=== PATIENT | male | born 1940 | race Caucasian/White ===

== ENCOUNTER 2017-02-12 11:34 | Emergency (ER) | payer MEDICARE, OTHER ==
[~2017-02-12] VITALS: Ht 177.8 cm; Wt 113.0 kg
[~2017-02-12 11:34] MED LIST: APIX5 PO; ASPI325T PO; ASPI81 PO; ATOR40TA49 PO; DIOV160T60 PO; FURO1TAB93 PO; GABA100C4 PO; MAGN1TAB14 PO; MULT-65 PO; OMEP20TA PO; ONDA1TAB16 PO; STOO100T PO; SYNT25TA PO; TAMS0.4C4 PO; VITA20002 PO
[2017-02-12 11:43] VITALS: BP 137/85; PULSE 81; RESP 18; TEMP 97.6; O2SAT 97
[2017-02-12] MEDS ORDERED: MORPHINE SULFATE 4 MG/ML INJ IV PUSH ONE (11:45)
[2017-02-12] MEDS ORDERED: SODIUM CHLORIDE 0.9% FLUSH 10 ML FLUSH IV FLUSH PRN (11:45)
[2017-02-12] MEDS ORDERED: ONDANSETRON HCL 4 MG/2 ML VIAL IVP ONE (11:45)
[2017-02-12 11:50] VITALS: O2SAT 97
[2017-02-12 12:09] LABS: AUTOMATED NEUTROPHIL # 3.5 TH/MM3 (1.8-7.7); BASOPHIL % 0.7 % (0.0-2.0); EOSINOPHIL # 0.2 TH/MM3 (0-0.4); EOSINOPHIL % 3.2 % (0.0-4.0); HEMATOCRIT 37.3 % (39.0-51.0); HEMO FLAGS DIFF FINAL; LYMPH % 26.9 % (9.0-44.0); LYMPHOCYTE # 1.7 TH/MM3 (1.0-4.8); MEAN CELL VOLUME 86.4 FL (80.0-100.0); MEAN CORPUSCULAR HEMOGLOBIN 28.9 PG (27.0-34.0); MEAN CORPUSCULAR HGB CONC 33.5 % (32.0-36.0); MONO % 12.4 % (0.0-8.0); NEUT % 56.8 % (16.0-70.0); PLATELET COUNT 151 TH/MM3 (150-450); RED BLOOD COUNT 4.32 MIL/MM3 (4.50-5.90); RED CELL DISTRIBUTION WIDTH 14.3 % (11.6-17.2); WHITE BLOOD COUNT 6.2 TH/MM3 (4.0-11.0)
[2017-02-12 12:25] LABS: ANION GAP 9 MEQ/L (5-15); AST (GOT) 21 U/L (15-37); BICARBONATE 27.1 MEQ/L (21.0-32.0); BLOOD UREA NITROGEN 9 MG/DL (7-18); CHLORIDE 100 MEQ/L (98-107); GLOMERULAR FILTRATION RATE 69 ML/MIN (>89); POTASSIUM 3.3 MEQ/L (3.5-5.1); SODIUM (NA) 136 MEQ/L (136-145)
[2017-02-12 12:29] LABS: ALKALINE PHOSPHATASE 95 U/L (45-117); ALT (GPT) 27 U/L (12-78); TOTAL BILIRUBIN ADULT 0.8 MG/DL (0.2-1.0)
--- NOTE | 2017-02-12 12:46 | PD ---
HPI . Nausea and abdominal pain Chief Complaint: Abdominal Pain Time Seen by Provider: 11:45 Travel History International Travel<30 days: No Contact w/Intl Traveler<30days: No Traveled to known affect area: No History of Present Illness HPI This patient presents with the acute onset of lower abdominal pain and nausea. Onset was today. He is not vomiting. He has had no known fever. No diarrhea. No urinary symptoms. He rates the pain 67/10. No exacerbating or relieving factors. The patient is also complaining of pain "across his shoulders." PFSH Past Medical History Arthritis: Yes Asthma: No Atrial Fibrillation: Yes Blood Disorders: No Anxiety: No Depression: Yes Heart Rhythm Problems: No Cancer: No Cardiovascular Problems: Yes (A-FIB / CHF / [place]) High Cholesterol: Yes Chemotherapy: No Chest Pain: Yes Congestive Heart Failure: Yes Cirrhosis: Yes (PT DOES NOT KNOW WHETHER HE ACTUALLY HAS THIS) COPD: No Cerebrovascular Accident: Yes (25 years ago) Coronary Artery Disease: Yes Diabetes: No Diminished Hearing: No Diverticulitis: Yes Endocrine: Yes Gastrointestinal Disorders: Yes (Diverticulitis) GERD: Yes Gout: Yes Genitourinary: No Headaches: No Hepatitis: No Hiatal Hernia: No Herniated Disk: Yes Hypertension: Yes Immune Disorder: No Implanted Vascular Access Dvce: No Kidney Stones: No Musculoskeletal: Yes Neurologic: Yes (CVA) Psychiatric: Yes Reproductive: Yes (prostate issues -retention) Respiratory: Yes Immunizations Current: Yes Migraines: No Myocardial Infarction: Yes Pancreatitis: Yes Radiation Therapy: No Renal Failure: No Seizures: No Sickle Cell Disease: No Sleep Apnea: No Thyroid Disease: Yes Ulcer: No Tetanus Vaccination: < 5 Years Influenza Vaccination: Yes PNEUMOCCOCAL Vaccine (Year): 2010 Past Surgical History Abdominal Surgery: Yes (RUPTURED SPLEEN) Cardiac Surgery: No Ear Surgery: No Endocrine Surgery: No Eye Surgery: No Genitourinary Surgery: No Gynecologic Surgery: No Neurologic Surgery: No Oral Surgery: No Thoracic Surgery: No Other Surgery: Yes (ruptured spleen ) Social History Alcohol Use: No Tobacco Use: No Substance Use: No Allergies-Medications (Allergen,Severity, Reaction): Coded Allergies: Allopurinol (Verified Allergy, Severe, 04/30/16) Naprosyn (Verified Allergy, Severe, Itching, 04/30/16) Reported Meds & Prescriptions Reported Meds & Active Scripts Active Zofran Odt (Ondansetron Odt) 4 Mg Tab 4 Mg SL Q6HR PRN Aspirin Low Strength (Aspirin) 81 Mg Chw 81 Mg PO DAILY 30 Days Eliquis (Apixaban) 5 Mg Tab 5 Mg PO BID 30 Days Lipitor 40 Mg Tab (Atorvastatin Calcium) 40 Mg Tab 40 Mg PO DAILY Aspirin 325 Mg Tab (Aspirin) 325 Mg Tab 325 Mg PO DAILY Zofran Tab (Ondansetron HCl) 4 Mg Tab 4 Mg PO Q6 PRN Furosemide 40 Mg Tab 20 Mg PO DAILY Reported Stool Softener (Miscellaneous Medication) 100 Mg Tab 100 Mg PO DAILY PRN Tamsulosin 0.4 mg (Tamsulosin HCl) 0.4 Mg Cap 0.4 Mg PO DAILY Vitamin D-3 (Cholecalciferol) 2 000 Tab 2,000 Unit PO DAILY Magnesium (Magnesium Oxide) 400 Mg Tab 800 Mg PO DAILY Gabapentin 100 Mg Cap 300 Mg PO HS Omeprazole 20 mg (Omeprazole) 20 Mg Tab 20 Mg PO DAILY Multi-Vitamin Daily (Multivitamins) Daily Tab 1 Tab PO DAILY Diovan 160 mg (Valsartan) 160 Mg Tab 160 Mg PO DAILY Synthroid (Levothyroxine Sodium) 25 Mcg Tab 25 Mcg PO DAILY Review of Systems Except as stated in HPI: all other systems reviewed are Neg General / Constitutional: No: Fever, Chills Cardiovascular: No: Chest Pain or Discomfort Respiratory: No: Shortness of Breath Gastrointestinal: Positive: Nausea, Abdominal Pain, No: Vomiting, Diarrhea, Constipation Genitourinary: No: Urgency, Frequency, Dysuria Musculoskeletal: Positive: Pain (across his shoulders) Physical Exam Narrative GENERAL: Patient is awake and alert and does not appear to be in any acute distress. SKIN: Warm and dry. HEAD: Atraumatic. Normocephalic. EYES: Pupils equal and round. Extraocular movements are intact. ENT: No nasal bleeding or discharge. Mucous membranes pink and moist. NECK: Trachea midline. Neck is supple. CARDIOVASCULAR: Irregularly irregular rate and rhythm. RESPIRATORY: No accessory muscle use. Lungs are clear. GASTROINTESTINAL: Abdomen soft, non-tender, nondistended. I am unable to elicit any tenderness. MUSCULOSKELETAL: No obvious deformities. No edema. NEUROLOGICAL: Awake and alert. No obvious cranial nerve deficits. Motor grossly within normal limits. Normal speech. PSYCHIATRIC: Appropriate mood and affect; insight and judgment normal. Data Data Last Documented VS Vital Signs Date Time Temp Pulse Resp B/P Pulse Ox O2 Delivery O2 Flow Rate FiO2 02/12/17 11:50 97 Room Air 02/12/17 11:43 97.6 81 18 137/85 Orders Complete Blood Count With Diff (02/12/17 11:45) Comprehensive Metabolic Panel (02/12/17 11:45) Lipase (02/12/17 11:45) Urinalysis - C+S If Indicated (02/12/17 11:45) Ct Abd/Pel W Iv Contrast(Rout) (02/12/17 11:45) Iv Access Insert/Monitor (02/12/17 11:45) Ecg Monitoring (02/12/17 11:45) Oximetry (02/12/17 11:45) Morphine Inj (Morphine Inj) (02/12/17 11:45) Ondansetron Inj (Zofran Inj) (02/12/17 11:45) Sodium Chloride 0.9% Flush (Ns Flush) (02/12/17 11:45) Electrocardiogram (02/12/17 11:45) Iohexol 350 Inj (Omnipaque 350 Inj) (02/12/17 13:08) Labs Laboratory Tests Test 02/12/17 02/12/17 11:50 13:20 White Blood Count 6.2 TH/MM3 Red Blood Count 4.32 MIL/MM3 Hemoglobin 12.5 GM/DL Hematocrit 37.3 % Mean Corpuscular Volume 86.4 FL Mean Corpuscular Hemoglobin 28.9 PG Mean Corpuscular Hemoglobin 33.5 % Concent Red Cell Distribution Width 14.3 % Platelet Count 151 TH/MM3 Mean Platelet Volume 8.7 FL Neutrophils (%) (Auto) 56.8 % Lymphocytes (%) (Auto) 26.9 % Monocytes (%) (Auto) 12.4 % Eosinophils (%) (Auto) 3.2 % Basophils (%) (Auto) 0.7 % Neutrophils # (Auto) 3.5 TH/MM3 Lymphocytes # (Auto) 1.7 TH/MM3 Monocytes # (Auto) 0.8 TH/MM3 Eosinophils # (Auto) 0.2 TH/MM3 Basophils # (Auto) 0.0 TH/MM3 CBC Comment DIFF FINAL Differential Comment Sodium Level 136 MEQ/L Potassium Level 3.3 MEQ/L Chloride Level 100 MEQ/L Carbon Dioxide Level 27.1 MEQ/L Anion Gap 9 MEQ/L Blood Urea Nitrogen 9 MG/DL Creatinine 1.05 MG/DL Estimat Glomerular Filtration 69 ML/MIN Rate Random Glucose 120 MG/DL Calcium Level 8.7 MG/DL Total Bilirubin 0.8 MG/DL Aspartate Amino Transf 21 U/L (AST/SGOT) Alanine Aminotransferase 27 U/L (ALT/SGPT) Alkaline Phosphatase 95 U/L Total Protein 8.1 GM/DL Albumin 3.7 GM/DL Lipase 99 U/L Urine Color YELLOW Urine Turbidity CLEAR Urine pH 5.5 Urine Specific [place] 1.015 Urine Protein NEG mg/dL Urine Glucose (UA) NEG mg/dL Urine Ketones NEG mg/dL Urine Occult Blood NEG Urine Nitrite NEG Urine Bilirubin NEG Urine Urobilinogen LESS THAN 2.0 MG/DL Urine Leukocyte Esterase NEG Urine WBC LESS THAN 1 /hpf Urine Mucus FEW /lpf Microscopic Urinalysis Comment CULT NOT INDICATED MDM Medical Decision Making Medical Screen Exam Complete: Yes Emergency Medical Condition: Yes Medical Record Reviewed: Yes (past medical history is significant for diverticulitis, hypertension, atrial fibrillation, CHF, hypothyroidism, previous stroke, previous alcohol abuse and previous suicidal ideation.) Interpretation(s) Atrial fibrillation with frequent PVCs. Ventricular rate is 72. There is no acute ST segment elevation or depression. Differential Diagnosis Differential diagnosis of abdominal pain includes but is not limited to gastritis, pancreatitis, hepatitis, gastroenteritis, gallbladder disease, constipation, urinary retention, UTI, peptic ulcer disease, diverticulitis or appendicitis Narrative Course This patient presents with nausea and lower abdominal pain. His exam is benign. CBC & BMP Diagram 02/12/17 11:50 LFTs and lipase are normal. CT abd/pelvis: 1. No acute abnormality to explain the patient's pain. 2. Cholelithiasis. 3. Prior granulomatous disease. UA is negative. The history, exam, diagnostic testing, and current condition do not suggest any significant pathology to warrant further testing, continued ED treatment, admission, or surgical evaluation at this point. The patient's condition is stable and appropriate for discharge. Diagnosis Primary Impression: Abdominal pain Qualified Code: R10.30 - Lower abdominal pain Additional Impression: Nausea Patient Instructions: Abdominal Pain (ED), General Instructions Scripts Ondansetron Odt (Zofran Odt)4 Mg Tab4 Mg SL Q6HR PRN (Nausea/Vomiting) #30 TAB Ref 0 Prov:Damaris Leyva MD 02/12/17 Disposition: 01 DISCHARGE HOME Condition: Stable Damaris Leyva MD Feb 12, 2017 12:46
[2017-02-12] MEDS ORDERED: IOHEXOL 350 MG/ML 10 ML VIAL (for RAD DIAG) IV ONE (13:08)
--- NOTE | 2017-02-12 13:36 | RADRPT ---
EXAM DATE/TIME: 02/12/2017 12:57 [facility] COMPARISON: CT ABDOMEN & PELVIS W CONTRAST, February 01, 2016, 9:46. INDICATIONS : Nausea, with Lower abdominal pain. IV CONTRAST: 92 cc Omnipaque 350 (iohexol) IV ORAL CONTRAST: No oral contrast ingested. RADIATION DOSE: 14.34 CTDIvol (mGy) MEDICAL HISTORY : Cardiovascular disease. Cerebrovascular disease. Hypertension.CHF,CVA, ruptured spleen, prostate ret ention. SURGICAL HISTORY : ENCOUNTER: Initial ACUITY: 1 day PAIN SCALE: 5/10 LOCATION: lower quadrant abdominal. TECHNIQUE: Volumetric scanning of the abdomen and pelvis was performed. Using automated exposure control and ad justment of the mA and/or kV according to patient size, radiation dose was kept as low as reasonably achievable to obtain optimal diagnostic quality images. DICOM format image data is available electro nically for review and comparison. FINDINGS: LOWER LUNGS: The visualized lower lungs are clear. LIVER: Homogeneous density without lesion. There is no dilation of the biliary tree. Several small calcifie d gallstones are seen layering within an otherwise normal appearing gallbladder. SPLEEN: Normal size without lesion. Multiple small granulomatous calcifications are seen involving the spleen PANCREAS: Within normal limits. KIDNEYS: Normal in size and shape. There is no mass, stone or hydronephrosis. ADRENAL GLANDS: Within normal limits. VASCULAR: There is no aortic aneurysm. BOWEL/MESENTERY: The stomach, small bowel, and colon demonstrate no acute abnormality. There is no free intraperitone al air or fluid. Multiple colonic diverticuli without acute inflammation. Appendix is normal by CT cr iteria. ABDOMINAL WALL: Within normal limits. RETROPERITONEUM: There is no lymphadenopathy. BLADDER: No wall thickening or mass. REPRODUCTIVE: Within normal limits. INGUINAL: There is no lymphadenopathy or hernia. MUSCULOSKELETAL: Within normal limits for patient age. CONCLUSION: 1. No acute abnormality to explain the patient's pain. 2. Cholelithiasis. 3. Prior granulomatous disease. Rigoberto Caraballo Jr., MD on February 12, 2017 at 13:17 Board Certified Radiologist. This report was verified electronically.
[2017-02-12] MEDS ORDERED: ZOFR4TAB3 SL (13:40)
[2017-02-12 13:54] LABS: BLOOD, URINE NEG (NEG); COMMENT (UR) CULT NOT INDICATED; CULTURE IF INDICATED CULT NOT INDICATED; GLUCOSE,URINE NEG (NEG); KETONE, URINE NEG (NEG); MUCUS URINE FEW /lpf (OCC); NITRITE,URINE NEG (NEG); PH, URINE 5.5 (5.0-8.5); URINE COLOR YELLOW (YELLW/STRAW)
--- NOTE | 2017-02-12 14:45 | EKG ---
Date Performed: 02/12/2017 Time Performed: 11:46:12 PTAGE: 76 years EKG: ATRIAL FIBRILLATION WITH ABERRANT CONDUCTION OR VENTRICULAR PREMATURE COMPLEXES LOW QRS VOL TAGE IN PRECORDIAL LEADS ABNORMAL RHYTHM ECG PREVIOUS TRACING : 05/01/2016 05.26 Compared to the previous tracing PVCs are new DOCTOR: Lawrence Abreu Interpretating Date/Time 02/12/2017 14:44:34
== END 2017-02-12 14:55 | disposition home or self-care (01) ==
LOC: NEPE 11:34
DX: R10.30 Lower abdominal pain, unspecified (principal); R11.0 Nausea; I49.3 Ventricular premature depolarization; I48.91 Unspecified atrial fibrillation; I11.0 Hypertensive heart disease with heart failure; I50.9 Heart failure, unspecified; E78.00 Pure hypercholesterolemia, unspecified; K21.9 Gastro-esophageal reflux disease without esophagitis; M10.9 Gout, unspecified; I25.2 Old myocardial infarction; K80.20 Calculus of gallbladder without cholecystitis without obstruction
CPT/HCPCS: 74177; 80053; 81001; 83690; 85025; 93005; 96374; 96375; 99285; J2270; J2405; Q9967

== ENCOUNTER 2018-01-04 12:44 | Observation (INO) | payer OTHER, MEDICARE ==
[~2018-01-04] VITALS: Ht 172.7 cm; Wt 100.0 kg
[~2018-01-04 12:44] MED LIST changes: +ZOFR4TAB3 SL
[2018-01-04 12:55] VITALS: BP 146/76; PULSE 80; RESP 20; TEMP 98.3; O2SAT 96
[2018-01-04 13:07] VITALS: BP 146/76; PULSE 80; RESP 20; TEMP 98.3; O2SAT 96
[2018-01-04] MEDS ORDERED: SODIUM CHLORIDE 0.9% FLUSH 10 ML FLUSH IVF PRN (13:30)
[2018-01-04] MEDS ORDERED: LEVO25TA4 PO (13:38)
[2018-01-04] MEDS ORDERED: LIPI80TA PO (13:38)
[2018-01-04] MEDS ORDERED: ISOS30TA3 PO (13:38)
[2018-01-04] MEDS ORDERED: NITR1SUB3 SL (13:38)
[2018-01-04] MEDS ORDERED: ASPI-183 PO (13:38)
[2018-01-04] MEDS ORDERED: LIDO1CRE18 TOPICAL (13:38)
[2018-01-04] MEDS ORDERED: CARV6.25 PO (13:38)
[2018-01-04] MEDS ORDERED: NORV2.5T PO (13:38)
[2018-01-04] MEDS ORDERED: FURO1TAB60 PO (13:38)
[2018-01-04] MEDS ORDERED: NEUR400C PO (13:38)
[2018-01-04] MEDS ORDERED: OMEP20TA93 PO (13:38)
[2018-01-04] MEDS ORDERED: ALFU10TA3 PO (13:38)
--- NOTE | 2018-01-04 13:43 | PD ---
HPI Chief Complaint: Psychiatric Symptoms Time Seen by Provider: 13:28 Travel History International Travel<30 days: No Contact w/Intl Traveler<30days: No Traveled to known affect area: No History of Present Illness HPI Patient is a 77-year-old male presenting to the emergency department under Cervantes act for [facility] evaluation from [facility]. Per the Cervantes act patient is at risk for potential self-harm, he has been laughing inappropriately , anxious, paranoid. Patient stated that he went to the [facility] this morning to get medication and he does not know why he was brought here. He denies any physical complaints, he denies any suicidal homicidal ideations. Patient states he is 31 years old but then stated that he lies about his age so much he forgets how old he really is. Patient denies any pain. Patient did state that he was going to , he does not elaborate on the thought. PFSH Past Medical History Hx Anticoagulant Therapy: No Arthritis: Yes Atrial Fibrillation: Yes Anxiety: Yes Depression: Yes High Cholesterol: Yes Chest Pain: Yes Congestive Heart Failure: Yes Cirrhosis: Yes Cerebrovascular Accident: Yes Coronary Artery Disease: Yes Diverticulitis: Yes GERD: Yes Gout: Yes Herniated Disk: Yes Hypertension: Yes Reproductive: Yes (BPH) Immunizations Current: Yes Myocardial Infarction: Yes Pancreatitis: Yes Thyroid Disease: Yes Tetanus Vaccination: Unknown Influenza Vaccination: No PNEUMOCCOCAL Vaccine (Year): 2010 ?: Not Past Surgical History Abdominal Surgery: Yes (RUPTURED SPLEEN) Social History Alcohol Use: Yes (Occasional) Tobacco Use: No Substance Use: No Allergies-Medications (Allergen,Severity, Reaction): Coded Allergies: allopurinol (Unverified Allergy, Severe, 03/09/17) naproxen (Unverified Allergy, Severe, Itching, 03/09/17) Reported Meds & Prescriptions Reported Meds & Active Scripts Active Reported Aspirin 325 Mg Tab 325 Mg PO DAILY Omeprazole 20 Mg Tab 20 Mg PO DAILY Nitroglycerin SL (Nitroglycerin) 0.4 Mg Subl 0.4 Mg SL DIRECTED PRN ONE TABLET UNDER THE TONGUE NEEDED FOR CHEST PAIN, MAY REPEAT EVERY FIVE MINUTES FOR A TOTAL OF 3 DOSES OR CALL 911 IF NO RELIEF Lidocaine Topical (Lidocaine) 4 % Cream 1 Applic TOPICAL QID Apply to affected area on skin Levothyroxine (Levothyroxine Sodium) 25 Mcg Tab 25 Mcg PO DAILY Isosorbide Mononitrate ER (Isosorbide Mononitrate) 30 Mg Lenore 30 Mg PO DAILY Neurontin (Gabapentin) 400 Mg Cap 400 Mg PO TID Lasix (Furosemide) 40 Mg Tab 40 Mg PO BID Coreg (Carvedilol) 6.25 Mg Tab 3.125 Mg PO BID Lipitor (Atorvastatin Calcium) 80 Mg Tab 80 Mg PO HS Norvasc (Amlodipine Besylate) 2.5 Mg Tab 2.5 Mg PO DAILY Alfuzosin HCl ER (Alfuzosin HCl) 10 Mg Tab 10 Mg PO DAILY Review of Systems Except as stated in HPI: all other systems reviewed are Neg Psychiatric: No: Anxiety, Suicidal Ideations, Mood Disorder, Homicidal Ideation Physical Exam Narrative GENERAL: Overweight, well-developed, alert elderly gentleman. Presenting in no acute distress. SKIN: Warm and dry. HEAD: Atraumatic. Normocephalic. EYES: Pupils equal and round. No scleral icterus. No injection or drainage. ENT: No nasal bleeding or discharge. Mucous membranes pink and moist. NECK: Trachea midline. No JVD. CARDIOVASCULAR: Regular rate and rhythm. RESPIRATORY: No accessory muscle use. Clear to auscultation. Breath sounds equal bilaterally. GASTROINTESTINAL: Abdomen soft, non-tender, nondistended. Hepatic and splenic margins not palpable. MUSCULOSKELETAL: Extremities without clubbing, cyanosis, or edema. No obvious deformities. NEUROLOGICAL: Awake and alert oriented to self, place, time.. No obvious cranial nerve deficits. Motor grossly within normal limits. Five out of 5 muscle strength in the arms and legs. Normal speech. PSYCHIATRIC: Appropriate mood and affect; insight and judgment normal. Data Data Last Documented VS Vital Signs Date Time Temp Pulse Resp B/P (MAP) Pulse Ox O2 Delivery O2 Flow Rate FiO2 01/04/18 13:44 96 Room Air 01/04/18 13:07 98.3 80 20 Orders Orders Complete Blood Count With Diff (01/04/18 13:29) Comprehensive Metabolic Panel (01/04/18 13:29) Thyroid Stimulating Hormone (01/04/18 13:29) Urinalysis - C+S If Indicated (01/04/18 13:29) Oximetry (01/04/18 13:29) Iv Access Insert/Monitor (01/04/18 13:29) Ecg Monitoring (01/04/18 13:29) Psych Screen (01/04/18 13:29) Sodium Chloride 0.9% Flush (Ns Flush) (01/04/18 13:30) Drug Screen, Random Urine (01/04/18 13:29) Alcohol (Ethanol) (01/04/18 13:29) Salicylates (Aspirin) (01/04/18 13:29) Tylenol (Acetaminophen) (01/04/18 13:29) Free Thyroxine (T4) (01/04/18 13:29) Vitamin D, 25-Hydroxy (01/04/18 13:29) Diet Heart Healthy (01/04/18 Dinner) Alcohol Withdrawal Asmt-Ciwa ONCE (01/04/18 14:45) Acetaminophen (Tylenol) (01/04/18 14:45) Flumazenil Inj (Romazicon Inj) (01/04/18 14:45) Lorazepam (Ativan) (01/04/18 14:45) Lorazepam Inj (Ativan Inj) (01/04/18 14:45) Lorazepam (Ativan) (01/04/18 14:45) Lorazepam Inj (Ativan Inj) (01/04/18 14:45) Lorazepam Inj (Ativan Inj) (01/04/18 14:45) Lorazepam Inj (Ativan Inj) (01/04/18 14:45) Ergocalciferol (Drisdol) (01/04/18 14:45) Electrocardiogram (01/04/18 ) Electrocardiogram (01/04/18 15:52) Ckmb (Isoenzyme) Profile (01/04/18 15:52) Magnesium (Mg) (01/04/18 15:52) Prothrombin Time / Inr (Pt) (01/04/18 15:52) Act Partial Throm Time (Ptt) (01/04/18 15:52) Troponin I (01/04/18 15:52) Lipase (01/04/18 15:52) CKMB (01/04/18 15:57) CKMB% (01/04/18 15:57) Admit Order (Ed Use Only) (01/04/18 17:42) Labs Laboratory Tests Test 01/04/18 13:42 01/04/18 15:57 01/04/18 16:30 White Blood Count 6.3 TH/MM3 Red Blood Count 4.67 MIL/MM3 Hemoglobin 14.4 GM/DL Hematocrit 41.7 % Mean Corpuscular Volume 89.3 FL Mean Corpuscular Hemoglobin 30.9 PG Mean Corpuscular Hemoglobin Concent 34.6 % Red Cell Distribution Width 13.9 % Platelet Count 185 TH/MM3 Mean Platelet Volume 8.8 FL Neutrophils (%) (Auto) 53.8 % Lymphocytes (%) (Auto) 37.0 % Monocytes (%) (Auto) 6.0 % Eosinophils (%) (Auto) 2.2 % Basophils (%) (Auto) 1.0 % Neutrophils # (Auto) 3.4 TH/MM3 Lymphocytes # (Auto) 2.3 TH/MM3 Monocytes # (Auto) 0.4 TH/MM3 Eosinophils # (Auto) 0.1 TH/MM3 Basophils # (Auto) 0.1 TH/MM3 CBC Comment DIFF FINAL Differential Comment Blood Urea Nitrogen 12 MG/DL Creatinine 1.11 MG/DL Random Glucose 84 MG/DL Total Protein 8.3 GM/DL Albumin 4.0 GM/DL Calcium Level 8.7 MG/DL Alkaline Phosphatase 78 U/L Aspartate Amino Transf (AST/SGOT) 33 U/L Alanine Aminotransferase (ALT/SGPT) 34 U/L Total Bilirubin 0.7 MG/DL Sodium Level 141 MEQ/L Potassium Level 3.9 MEQ/L Chloride Level 105 MEQ/L Carbon Dioxide Level 21.8 MEQ/L Anion Gap 14 MEQ/L Estimat Glomerular Filtration Rate 65 ML/MIN 25-Hydroxy Vitamin D Total 26.3 ng/ML Free Thyroxine 1.19 NG/DL Thyroid Stimulating Hormone 3rd Gen 0.902 uIU/ML Salicylates Level LESS THAN 1.7 MG/DL Acetaminophen Level LESS THAN 2.0 MCG/ML Ethyl Alcohol Level 248 MG/DL Prothrombin Time 22.8 SEC Prothromb Time International Ratio 2.3 RATIO Activated Partial Thromboplast Time 51.5 SEC Magnesium Level 2.0 MG/DL Total Creatine Kinase 204 U/L Creatine Kinase MB 2.1 NG/ML Troponin I 0.04 NG/ML Lipase 93 U/L Urine Color YELLOW Urine Turbidity CLEAR Urine pH 5.5 Urine Specific [place] 1.020 Urine Protein TRACE mg/dL Urine Glucose (UA) NEG mg/dL Urine Ketones 10 mg/dL Urine Occult Blood NEG Urine Nitrite NEG Urine Bilirubin NEG Urine Urobilinogen LESS THAN 2.0 MG/DL Urine Leukocyte Esterase NEG Urine RBC LESS THAN 1 /hpf Urine WBC LESS THAN 1 /hpf Urine Squamous Epithelial Cells <1 /hpf Urine Hyaline Casts 2 /lpf Urine Mucus FEW /lpf Microscopic Urinalysis Comment CULT NOT INDICATED Urine Opiates Screen NEG Urine Barbiturates Screen NEG Urine Amphetamines Screen NEG Urine Benzodiazepines Screen POS Urine Cocaine Screen NEG Urine Cannabinoids Screen NEG MDM Medical Decision Making Medical Screen Exam Complete: Yes Emergency Medical Condition: Yes Medical Record Reviewed: Yes Interpretation(s) Laboratory Tests Test 01/04/18 13:42 01/04/18 15:57 01/04/18 16:30 White Blood Count 6.3 TH/MM3 Red Blood Count 4.67 MIL/MM3 Hemoglobin 14.4 GM/DL Hematocrit 41.7 % Mean Corpuscular Volume 89.3 FL Mean Corpuscular Hemoglobin 30.9 PG Mean Corpuscular Hemoglobin Concent 34.6 % Red Cell Distribution Width 13.9 % Platelet Count 185 TH/MM3 Mean Platelet Volume 8.8 FL Neutrophils (%) (Auto) 53.8 % Lymphocytes (%) (Auto) 37.0 % Monocytes (%) (Auto) 6.0 % Eosinophils (%) (Auto) 2.2 % Basophils (%) (Auto) 1.0 % Neutrophils # (Auto) 3.4 TH/MM3 Lymphocytes # (Auto) 2.3 TH/MM3 Monocytes # (Auto) 0.4 TH/MM3 Eosinophils # (Auto) 0.1 TH/MM3 Basophils # (Auto) 0.1 TH/MM3 CBC Comment DIFF FINAL Differential Comment Blood Urea Nitrogen 12 MG/DL Creatinine 1.11 MG/DL Random Glucose 84 MG/DL Total Protein 8.3 GM/DL Albumin 4.0 GM/DL Calcium Level 8.7 MG/DL Alkaline Phosphatase 78 U/L Aspartate Amino Transf (AST/SGOT) 33 U/L Alanine Aminotransferase (ALT/SGPT) 34 U/L Total Bilirubin 0.7 MG/DL Sodium Level 141 MEQ/L Potassium Level 3.9 MEQ/L Chloride Level 105 MEQ/L Carbon Dioxide Level 21.8 MEQ/L Anion Gap 14 MEQ/L Estimat Glomerular Filtration Rate 65 ML/MIN 25-Hydroxy Vitamin D Total 26.3 ng/ML Free Thyroxine 1.19 NG/DL Thyroid Stimulating Hormone 3rd Gen 0.902 uIU/ML Salicylates Level LESS THAN 1.7 MG/DL Acetaminophen Level LESS THAN 2.0 MCG/ML Ethyl Alcohol Level 248 MG/DL Prothrombin Time 22.8 SEC Prothromb Time International Ratio 2.3 RATIO Activated Partial Thromboplast Time 51.5 SEC Magnesium Level 2.0 MG/DL Total Creatine Kinase 204 U/L Creatine Kinase MB 2.1 NG/ML Troponin I 0.04 NG/ML Lipase 93 U/L Urine Color YELLOW Urine Turbidity CLEAR Urine pH 5.5 Urine Specific [place] 1.020 Urine Protein TRACE mg/dL Urine Glucose (UA) NEG mg/dL Urine Ketones 10 mg/dL Urine Occult Blood NEG Urine Nitrite NEG Urine Bilirubin NEG Urine Urobilinogen LESS THAN 2.0 MG/DL Urine Leukocyte Esterase NEG Urine RBC LESS THAN 1 /hpf Urine WBC LESS THAN 1 /hpf Urine Squamous Epithelial Cells <1 /hpf Urine Hyaline Casts 2 /lpf Urine Mucus FEW /lpf Microscopic Urinalysis Comment CULT NOT INDICATED Urine Opiates Screen NEG Urine Barbiturates Screen NEG Urine Amphetamines Screen NEG Urine Benzodiazepines Screen POS Urine Cocaine Screen NEG Urine Cannabinoids Screen NEG Vital Signs Date Time Temp Pulse Resp B/P (MAP) Pulse Ox O2 Delivery O2 Flow Rate FiO2 01/04/18 13:07 98.3 80 20 146/76 (99) 96 Room Air 01/04/18 12:55 98.3 80 20 146/76 (99) 96 Differential Diagnosis Mood disorder versus metabolic abnormality versus substance abuse versus suicidal ideations versus other Narrative Course Patient is a 77-year-old male presenting under a Cervantes act for psychiatric evaluation from the [place] [facility]. Patient is well-appearing, his vital signs are stable. Patient does appear to laugh excessively but he is cooperative and pleasant otherwise. Mental health screening discussed with the patient. Psychiatric screen ordered. CBC with no acute findings, chemistry is unremarkable, thyroid panel with no acute findings. Vitamin D level is 26.3. Urinalysis unremarkable. Urine drug screen is positive for benzodiazepines, alcohol level is 248. At 1600 patient complained of midsternal chest pain to RN. Cardiac enzymes, EKG , chest x-ray ordered. Cardiac enzymes are negative 1 set, EKG shows atrial fibrillation, his rate is controlled. This was reviewed by my attending physician. Patient was also seen and evaluated by my attending physician. At this time patient will be admitted to medicine for further workup and evaluation. Discussed with Dr. Carrizales who accepted admission, admit orders placed. Patient has been resting comfortably. He did report that he has had intermittent chest pain for a while. He was supposed to have heart surgery but was scared. Diagnosis Primary Impression: Chest pain Qualified Codes: R07.9 - Chest pain, unspecified Admitting Information Admitting Physician Requests: Observation Condition: Stable Amanda Cohen Jan 04, 2018 13:43
[2018-01-04 13:44] VITALS: O2SAT 96
[2018-01-04 13:56] LABS: AUTOMATED NEUTROPHIL # 3.4 TH/MM3 (1.8-7.7); BASOPHIL # 0.1 TH/MM3 (0-0.2); EOSINOPHIL # 0.1 TH/MM3 (0-0.4); EOSINOPHIL % 2.2 % (0.0-4.0); HEMATOCRIT 41.7 % (39.0-51.0); HEMOGLOBIN 14.4 GM/DL (13.0-17.0); LYMPHOCYTE # 2.3 TH/MM3 (1.0-4.8); MEAN CELL VOLUME 89.3 FL (80.0-100.0); MEAN CORPUSCULAR HEMOGLOBIN 30.9 PG (27.0-34.0); MEAN CORPUSCULAR HGB CONC 34.6 % (32.0-36.0); MEAN PLATELET VOLUME 8.8 FL (7.0-11.0); MONOCYTE # 0.4 TH/MM3 (0-0.9); NEUT % 53.8 % (16.0-70.0); PLATELET COUNT 185 TH/MM3 (150-450); RED BLOOD COUNT 4.67 MIL/MM3 (4.50-5.90); RED CELL DISTRIBUTION WIDTH 13.9 % (11.6-17.2); WHITE BLOOD COUNT 6.3 TH/MM3 (4.0-11.0)
[2018-01-04 14:21] LABS: ALT (GPT) 34 U/L (12-78); AST (GOT) 33 U/L (15-37); BICARBONATE 21.8 MEQ/L (21.0-32.0); BLOOD UREA NITROGEN 12 MG/DL (7-18); CALCIUM 8.7 MG/DL (8.5-10.1); CHLORIDE 105 MEQ/L (98-107); CREATININE 1.11 MG/DL (0.60-1.30); GLOMERULAR FILTRATION RATE 65 ML/MIN (>89); GLUCOSE,RANDOM 84 MG/DL (74-106); SODIUM (NA) 141 MEQ/L (136-145)
[2018-01-04 14:30] LABS: ALKALINE PHOSPHATASE 78 U/L (45-117); FREE T4 1.19 NG/DL (0.76-1.46); TOTAL BILIRUBIN ADULT 0.7 MG/DL (0.2-1.0); TOTAL PROTEIN 8.3 GM/DL (6.4-8.2)
[2018-01-04 14:31] LABS: ACETAMINOPHEN LESS THAN 2.0 MCG/ML (10.0-30.0)
[2018-01-04] MEDS ORDERED: LORazepam 2 MG/ML VIAL IV PUSH PRN ×8 (14:45→18:00)
[2018-01-04] MEDS ORDERED: FLUMAZENIL 0.5 MG/5 ML VIAL IV PUSH PRN ×2 (14:45→18:00)
[2018-01-04] MEDS ORDERED: LORazepam 2 MG TAB PO PRN ×2 (14:45→18:00)
[2018-01-04] MEDS ORDERED: ACETAMINOPHEN 325 MG TAB PO PRN ×3 (14:45→18:00)
[2018-01-04] MEDS ORDERED: LORazepam 1 MG TAB PO PRN ×2 (14:45→18:00)
[2018-01-04] MEDS ORDERED: ERGOCALCIFEROL (VIT D2) 50,000 UNIT CAP PO ONE (14:45)
[2018-01-04 16:26] LABS: INTERNATIONAL NORMALIZED RATIO 2.3 RATIO; PROTHROMBIN TIME - PATIENT 22.8 SEC (9.8-11.6)
[2018-01-04 16:45] LABS: BILIRUBIN, URINE NEG (NEG); BLOOD, URINE NEG (NEG); GLUCOSE,URINE NEG (NEG); HYALINE CAST, URINE 2 /lpf (RARE); KETONE, URINE 10 mg/dL (NEG); MUCUS URINE FEW /lpf (OCC); NITRITE,URINE NEG (NEG); PH, URINE 5.5 (5.0-8.5); SQUAMOUS EPITHELIAL CELL URINE <1 /hpf (0-5); URINE COLOR YELLOW (YELLW/STRAW); URINE LEUKOCYTE ESTERASE NEG (NEG)
[2018-01-04 16:53] LABS: TROPONIN I 0.04 NG/ML (0.02-0.05)
--- NOTE | 2018-01-04 17:30 | PD ---
Data Data Last Documented VS Vital Signs Date Time Temp Pulse Resp B/P (MAP) Pulse Ox O2 Delivery O2 Flow Rate FiO2 01/04/18 13:44 96 Room Air 01/04/18 13:07 98.3 80 20 Orders Orders Complete Blood Count With Diff (01/04/18 13:29) Comprehensive Metabolic Panel (01/04/18 13:29) Thyroid Stimulating Hormone (01/04/18 13:29) Urinalysis - C+S If Indicated (01/04/18 13:29) Oximetry (01/04/18 13:29) Iv Access Insert/Monitor (01/04/18 13:29) Ecg Monitoring (01/04/18 13:29) Psych Screen (01/04/18 13:29) Sodium Chloride 0.9% Flush (Ns Flush) (01/04/18 13:30) Drug Screen, Random Urine (01/04/18 13:29) Alcohol (Ethanol) (01/04/18 13:29) Salicylates (Aspirin) (01/04/18 13:29) Tylenol (Acetaminophen) (01/04/18 13:29) Free Thyroxine (T4) (01/04/18 13:29) Vitamin D, 25-Hydroxy (01/04/18 13:29) Diet Heart Healthy (01/04/18 Dinner) Alcohol Withdrawal Asmt-Ciwa ONCE (01/04/18 14:45) Acetaminophen (Tylenol) (01/04/18 14:45) Flumazenil Inj (Romazicon Inj) (01/04/18 14:45) Lorazepam (Ativan) (01/04/18 14:45) Lorazepam Inj (Ativan Inj) (01/04/18 14:45) Lorazepam (Ativan) (01/04/18 14:45) Lorazepam Inj (Ativan Inj) (01/04/18 14:45) Lorazepam Inj (Ativan Inj) (01/04/18 14:45) Lorazepam Inj (Ativan Inj) (01/04/18 14:45) Ergocalciferol (Drisdol) (01/04/18 14:45) Electrocardiogram (01/04/18 ) Ckmb (Isoenzyme) Profile (01/04/18 15:52) Magnesium (Mg) (01/04/18 15:52) Prothrombin Time / Inr (Pt) (01/04/18 15:52) Act Partial Throm Time (Ptt) (01/04/18 15:52) Troponin I (01/04/18 15:52) Lipase (01/04/18 15:52) CKMB (01/04/18 15:57) CKMB% (01/04/18 15:57) Admit Order (Ed Use Only) (01/04/18 17:42) Chest, Single Ap (01/04/18 ) Labs Laboratory Tests Test 01/04/18 13:42 01/04/18 15:57 01/04/18 16:30 White Blood Count 6.3 TH/MM3 Red Blood Count 4.67 MIL/MM3 Hemoglobin 14.4 GM/DL Hematocrit 41.7 % Mean Corpuscular Volume 89.3 FL Mean Corpuscular Hemoglobin 30.9 PG Mean Corpuscular Hemoglobin Concent 34.6 % Red Cell Distribution Width 13.9 % Platelet Count 185 TH/MM3 Mean Platelet Volume 8.8 FL Neutrophils (%) (Auto) 53.8 % Lymphocytes (%) (Auto) 37.0 % Monocytes (%) (Auto) 6.0 % Eosinophils (%) (Auto) 2.2 % Basophils (%) (Auto) 1.0 % Neutrophils # (Auto) 3.4 TH/MM3 Lymphocytes # (Auto) 2.3 TH/MM3 Monocytes # (Auto) 0.4 TH/MM3 Eosinophils # (Auto) 0.1 TH/MM3 Basophils # (Auto) 0.1 TH/MM3 CBC Comment DIFF FINAL Differential Comment Blood Urea Nitrogen 12 MG/DL Creatinine 1.11 MG/DL Random Glucose 84 MG/DL Total Protein 8.3 GM/DL Albumin 4.0 GM/DL Calcium Level 8.7 MG/DL Alkaline Phosphatase 78 U/L Aspartate Amino Transf (AST/SGOT) 33 U/L Alanine Aminotransferase (ALT/SGPT) 34 U/L Total Bilirubin 0.7 MG/DL Sodium Level 141 MEQ/L Potassium Level 3.9 MEQ/L Chloride Level 105 MEQ/L Carbon Dioxide Level 21.8 MEQ/L Anion Gap 14 MEQ/L Estimat Glomerular Filtration Rate 65 ML/MIN 25-Hydroxy Vitamin D Total 26.3 ng/ML Free Thyroxine 1.19 NG/DL Thyroid Stimulating Hormone 3rd Gen 0.902 uIU/ML Salicylates Level LESS THAN 1.7 MG/DL Acetaminophen Level LESS THAN 2.0 MCG/ML Ethyl Alcohol Level 248 MG/DL Prothrombin Time 22.8 SEC Prothromb Time International Ratio 2.3 RATIO Activated Partial Thromboplast Time 51.5 SEC Magnesium Level 2.0 MG/DL Total Creatine Kinase 204 U/L Creatine Kinase MB 2.1 NG/ML Troponin I 0.04 NG/ML Lipase 93 U/L Urine Color YELLOW Urine Turbidity CLEAR Urine pH 5.5 Urine Specific [place] 1.020 Urine Protein TRACE mg/dL Urine Glucose (UA) NEG mg/dL Urine Ketones 10 mg/dL Urine Occult Blood NEG Urine Nitrite NEG Urine Bilirubin NEG Urine Urobilinogen LESS THAN 2.0 MG/DL Urine Leukocyte Esterase NEG Urine RBC LESS THAN 1 /hpf Urine WBC LESS THAN 1 /hpf Urine Squamous Epithelial Cells <1 /hpf Urine Hyaline Casts 2 /lpf Urine Mucus FEW /lpf Microscopic Urinalysis Comment CULT NOT INDICATED Urine Opiates Screen NEG Urine Barbiturates Screen NEG Urine Amphetamines Screen NEG Urine Benzodiazepines Screen POS Urine Cocaine Screen NEG Urine Cannabinoids Screen NEG MDM Supervised Visit with [facility]ALI: Yes Narrative Course I, Dr. López, have reviewed the advance practice practitioner's documentation and am in agreement, met with the patient face to face, made the diagnosis, and the medical decision making was done by me. *My assessment and Findings: Patient seen and examined by me in addition to Amanda Almodovar. 77-year-old male presents emergency department under Cervantes act, was heavily intoxicated on arrival prior to the start of my shift, he is still very tangential and has to be redirected many a time during his history. He complains of left-sided chest pain radiating to shoulder and [facility] but refused it. At this time he is intoxicated under the Cervantes act and I cannot clear him medically for psychiatry will be admitted to hospice for further workup of his chest pain. He is under a Cervantes act peer Philip López MD Jan 04, 2018 17:30
[2018-01-04] MEDS ORDERED: cloNIDine HCL 0.1 MG TAB PO PRN (17:45)
[2018-01-04] MEDS ORDERED: NITROGLYCERIN 0.4 MG SL 25 TABS/BTL SL PRN (18:00)
[2018-01-04] MEDS ORDERED: METOCLOPRAMIDE HCL 10 MG/2 ML VIAL IV PUSH PRN (18:00)
[2018-01-04] MEDS ORDERED: HALOPERIDOL LACTATE 5 MG/ML AMP IM PRN (18:00)
[2018-01-04] MEDS ORDERED: SODIUM CHLORIDE 0.9% FLUSH 10 ML FLUSH IV FLUSH PRN ×3 (18:00)
[2018-01-04] MEDS ORDERED: NALOXONE HCL 0.4 MG/ML AMP IV PUSH PRN (18:00)
[2018-01-04] MEDS ORDERED: MORPHINE SULFATE 4 MG/ML INJ IV PUSH PRN ×3 (18:00)
[2018-01-04] MEDS ORDERED: SENNOSIDES 8.6 MG TAB PO PRN (18:00)
[2018-01-04] MEDS ORDERED: ONDANSETRON ODT 4 MG TAB PO PRN (18:00)
[2018-01-04] MEDS ORDERED: LACTULOSE SYRUP 20 GM/30 ML CUP PO PRN (18:00)
[2018-01-04] MEDS ORDERED: BISACODYL 10 MG SUPP RECTAL PRN (18:00)
[2018-01-04] MEDS ORDERED: MAGNESIUM HYDROXIDE SUSP 30 ML CUP PO PRN (18:00)
[2018-01-04] MEDS ORDERED: oxyCODONE/ACETAMINOPHEN 5 MG/325 MG TAB PO PRN (18:00)
--- NOTE | 2018-01-04 18:12 | RADRPT ---
EXAM DATE: 01/04/2018 6:10 PM EDT AGE/SEX: 77 years / Male INDICATIONS: Short of breath. CLINICAL DATA: This is the patient's subsequent encounter. Patient reports that signs and symptoms h ave been present for 4 - 6 days and indicates a pain score of 0/10. MEDICAL/SURGICAL HISTORY: None. None. COMPARISON: [facility] [place], 10/[place]. . FINDINGS: A single AP view of the chest demonstrates the lungs to be symmetrically aerated without evidence of mass, infiltrate or effusion. The cardiomediastinal contours are unremarkable. Osseous structures a re intact. CONCLUSION: Negative chest. No pneumothorax or failure. Electronically signed by: Terrell Maravilla MD 01/04/2018 6:11 PM EDT
[2018-01-04] MEDS: ISOSORBIDE MONONITRATE 30 MG CR TAB (IMDUR) PO SCH (19:50)
[2018-01-04] MEDS: MULTIVITAMINS/MINERALS THERAPEUTIC TAB PO SCH (19:50)
[2018-01-04] MEDS: GABAPENTIN 400 MG CAP PO SCH (19:51)
[2018-01-04] MEDS: FOLIC ACID 1 MG TAB PO SCH (19:51)
[2018-01-04] MEDS: THIAMINE HCL 100 MG TAB PO SCH (19:51)
[2018-01-04 20:16] VITALS: BP 159/68; PULSE 92; RESP 19; TEMP 98; O2SAT 96
--- NOTE | 2018-01-04 20:29 | EKG ---
Date Performed: 01/04/2018 Time Performed: 15:39:54 PTAGE: 77 years EKG: ATRIAL FIBRILLATION LOW QRS VOLTAGE IN PRECORDIAL LEADS ABNORMAL RHYTHM ECG PREVIOUS TRACING : 02/12/2017 11.46 DOCTOR: Davon Lozoya Interpretating Date/Time 01/04/2018 20:28:35
--- NOTE | 2018-01-04 20:35 | HHI.HP ---
HPI Service [facility] Hospitalists Primary Care Physician [facility] Admission Diagnosis CHEST PAIN, CERVANTES ACT Diagnoses: Travel History International Travel<30 Days: No Contact w/Intl Traveler <30 Da: No Traveled to Known Affected Are: No History of Present Illness 77-year-old male with a past medical history significant for hypertension, hyperlipidemia, CHF, A. fib (anticoagulated on aspirin) and CAD presents to the emergency department under Cervantes act for strange behavior at the [facility]. During her interview, the patient states he cannot tell me why he was here. He reports having 2-3 shots of hard liquor this morning prior to his appointment at the [facility]. While at the [facility] he was found to have strange behavior and was Cervantes acted and sent to [facility] for further evaluation. During his time at [facility] he developed substernal chest pain that radiated down his left arm. He reports he continues to have this chest pain. He endorses associated shortness of breath and palpitations. He denies any abdominal pain. No nausea/vomiting/ diarrhea. No lateralizing signs/symptoms. Review of Systems Except as stated in HPI: all other systems reviewed are Neg Past Family Social History Past Medical History hypertension, hyperlipidemia, CHF, A. fib (anticoagulated on aspirin) and CAD Past Surgical History None Reported Medications Reported Meds & Active Scripts Active Reported Aspirin 325 Mg Tab 325 Mg PO DAILY Omeprazole 20 Mg Tab 20 Mg PO DAILY Nitroglycerin SL (Nitroglycerin) 0.4 Mg Subl 0.4 Mg SL DIRECTED PRN ONE TABLET UNDER THE TONGUE NEEDED FOR CHEST PAIN, MAY REPEAT EVERY FIVE MINUTES FOR A TOTAL OF 3 DOSES OR CALL 911 IF NO RELIEF Lidocaine Topical (Lidocaine) 4 % Cream 1 Applic TOPICAL QID Apply to affected area on skin Levothyroxine (Levothyroxine Sodium) 25 Mcg Tab 25 Mcg PO DAILY Isosorbide Mononitrate ER (Isosorbide Mononitrate) 30 Mg Lenore 30 Mg PO DAILY Neurontin (Gabapentin) 400 Mg Cap 400 Mg PO TID Lasix (Furosemide) 40 Mg Tab 40 Mg PO BID Coreg (Carvedilol) 6.25 Mg Tab 3.125 Mg PO BID Lipitor (Atorvastatin Calcium) 80 Mg Tab 80 Mg PO HS Norvasc (Amlodipine Besylate) 2.5 Mg Tab 2.5 Mg PO DAILY Alfuzosin HCl ER (Alfuzosin HCl) 10 Mg Tab 10 Mg PO DAILY Allergies: Coded Allergies: allopurinol (Unverified Allergy, Severe, 03/09/17) naproxen (Unverified Allergy, Severe, Itching, 03/09/17) Family History Father with CVA. Mother with CAD. Social History Patient denies any alcohol except for admits to taking 2-3 shots a day prior to going to the emergency department. He adamantly denies any other recent alcohol use. Denies tobacco and illicit drugs. Physical Exam Vital Signs Vital Signs Date Time Temp Pulse Resp B/P (MAP) Pulse Ox O2 Delivery O2 Flow Rate FiO2 01/04/18 20:16 98.0 92 19 159/68 (98) 96 01/04/18 13:44 96 Room Air 01/04/18 13:07 98.3 80 20 146/76 (99) 96 Room Air 01/04/18 12:55 98.3 80 20 146/76 (99) 96 Physical Exam GENERAL: male sitting up in bed SKIN: No rashes, ecchymoses or lesions. Cool and dry. HEAD: Atraumatic. Normocephalic. No temporal or scalp tenderness. EYES: Pupils equal round and reactive. Extraocular motions intact. No scleral icterus. No injection or drainage. ENT: Nose without bleeding, purulent drainage or septal hematoma. Throat without erythema, tonsillar hypertrophy or exudate. Uvula midline. Airway patent. NECK: Trachea midline. No JVD or lymphadenopathy. Supple, nontender, no meningeal signs. CARDIOVASCULAR: Regular rate and irregularly irregular rhythm without murmurs, gallops, or rubs. RESPIRATORY: Clear to auscultation. Breath sounds equal bilaterally. No wheezes , rales, or rhonchi. GASTROINTESTINAL: Abdomen soft, non-tender, nondistended. No hepato-splenomegaly , or palpable masses. No guarding. MUSCULOSKELETAL: Extremities without clubbing, cyanosis, or edema. No joint tenderness, effusion, or edema noted. No calf tenderness. NEUROLOGICAL: Awake and alert. Cranial nerves II through XII intact. Motor and sensory grossly within normal limits. Normal speech. Laboratory Laboratory Tests Test 01/04/18 13:42 01/04/18 15:57 01/04/18 16:30 01/04/18 19:57 White Blood Count 6.3 Red Blood Count 4.67 Hemoglobin 14.4 Hematocrit 41.7 Mean Corpuscular Volume 89.3 Mean Corpuscular Hemoglobin 30.9 Mean Corpuscular Hemoglobin Concent 34.6 Red Cell Distribution Width 13.9 Platelet Count 185 Mean Platelet Volume 8.8 Neutrophils (%) (Auto) 53.8 Lymphocytes (%) (Auto) 37.0 Monocytes (%) (Auto) 6.0 Eosinophils (%) (Auto) 2.2 Basophils (%) (Auto) 1.0 Neutrophils # (Auto) 3.4 Lymphocytes # (Auto) 2.3 Monocytes # (Auto) 0.4 Eosinophils # (Auto) 0.1 Basophils # (Auto) 0.1 CBC Comment DIFF FINAL Differential Comment Blood Urea Nitrogen 12 Creatinine 1.11 Random Glucose 84 Total Protein 8.3 Albumin 4.0 Calcium Level 8.7 Alkaline Phosphatase 78 Aspartate Amino Transf (AST/SGOT) 33 Alanine Aminotransferase (ALT/SGPT) 34 Total Bilirubin 0.7 Sodium Level 141 Potassium Level 3.9 Chloride Level 105 Carbon Dioxide Level 21.8 Anion Gap 14 Estimat Glomerular Filtration Rate 65 25-Hydroxy Vitamin D Total 26.3 Free Thyroxine 1.19 Thyroid Stimulating Hormone 3rd Gen 0.902 Salicylates Level LESS THAN 1.7 Acetaminophen Level LESS THAN 2.0 Ethyl Alcohol Level 248 Prothrombin Time 22.8 Prothromb Time International Ratio 2.3 Activated Partial Thromboplast Time 51.5 Magnesium Level 2.0 Total Creatine Kinase 204 Creatine Kinase MB 2.1 Troponin I 0.04 Lipase 93 Urine Color YELLOW Urine Turbidity CLEAR Urine pH 5.5 Urine Specific Organ 1.020 Urine Protein TRACE Urine Glucose (UA) NEG Urine Ketones 10 Urine Occult Blood NEG Urine Nitrite NEG Urine Bilirubin NEG Urine Urobilinogen LESS THAN 2.0 Urine Leukocyte Esterase NEG Urine RBC LESS THAN 1 Urine WBC LESS THAN 1 Urine Squamous Epithelial Cells <1 Urine Hyaline Casts 2 Urine Mucus FEW Microscopic Urinalysis Comment CULT NOT INDICATED Urine Opiates Screen NEG Urine Barbiturates Screen NEG Urine Amphetamines Screen NEG Urine Benzodiazepines Screen POS Urine Cocaine Screen NEG Urine Cannabinoids Screen NEG Result Diagram: 01/04/18 1342 01/04/18 1342 Caprini VTE Risk Assessment Caprini VTE Risk Assessment: Mod/High Risk (score >= 2) Caprini Risk Assessment Model Point Value = 1 Point Value = 2 Point Value = 3 Point Value = 5 Age 41-60 Minor surgery BMI > 25 kg/m2 Swollen legs Varicose veins or History of unexplained or recurrent spontaneous Oral contraceptives or hormone replacement Sepsis (< 1 month) Serious lung disease, including pneumonia (< 1 month) Abnormal pulmonary function Acute myocardial infarction Congestive heart failure (< 1 month) History of inflammatory bowel disease Medical patient at bed rest Age 61-74 Arthroscopic surgery Major open surgery (> 45 min) Laparoscopic surgery (> 45 min) Malignancy Confined to bed (> 72 hours) Immobilizing plaster cast Central venous access Age >= 75 History of VTE Family history of VTE Factor V Leiden Prothrombin [id number] Lupus anticoagulant Anticardiolipin antibodies Elevated serum homocysteine Heparin-induced thrombocytopenia Other congenital or acquired thrombophilia Stroke (< 1 month) Elective arthroplasty Hip, pelvis, or leg fracture Acute spinal cord injury (< 1 month) Prophylaxis Regimen Total Risk Factor Score Risk Level Prophylaxis Regimen 0-1 Low Early ambulation 2 Moderate Order ONE of the following: *Sequential Compression Device (SCD) *Heparin 5000 units SQ BID 3-4 Higher Order ONE of the following medications: *Heparin 5000 units SQ TID *Enoxaparin/Lovenox 40 mg SQ daily (WT < 150 kg, CrCl > 30 mL/min) *Enoxaparin/Lovenox 30 mg SQ daily (WT < 150 kg, CrCl > 10-29 mL/min) *Enoxaparin/Lovenox 30 mg SQ BID (WT < 150 kg, CrCl > 30 mL/min) AND/OR *Sequential Compression Device (SCD) 5 or more Highest Order ONE of the following medications: *Heparin 5000 units SQ TID (Preferred with Epidurals) *Enoxaparin/Lovenox 40 mg SQ daily (WT < 150 kg, CrCl > 30 mL/min) *Enoxaparin/Lovenox 30 mg SQ daily (WT < 150 kg, CrCl > 10-29 mL/min) *Enoxaparin/Lovenox 30 mg SQ BID (WT < 150 kg, CrCl > 30 mL/min) AND *Sequential Compression Device (SCD) Assessment and Plan Assessment and Plan Assessment/plan: 1. Chest pain EKG significant for atrial fibrillation, pulse 74, without ST segment elevations or depressions Initial troponin 0.04 ACS rule out pending; serial troponins/EKGs Aspirin Morphine Cardiology consulted, appreciate recommendations 2. Alcohol intoxication Patient placed under Cervantes act Psychiatry consulted, appreciate recommendations Thiamine/folate/multivitamins [facility] protocol 3. Atrial fibrillation/CHF Continue home medications The patient reports he had adverse reactions to anticoagulants therefore he is only anticoagulated on aspirin 4. Hypertension/hyperlipidemia/CAD/hypothyroidism Continue home medication FEN N.p.o. Electrolytes: Monitor and replete as needed Heparin Blessing Rojo MD Jan 04, 2018 20:35
[2018-01-04] MEDS ORDERED: SODIUM CHLORIDE 0.9% FLUSH 10 ML FLUSH IV FLUSH SCH ×2 (21:00)
[2018-01-04] MEDS ORDERED: ATORVASTATIN 80 MG TAB PO SCH (21:00)
[2018-01-04] MEDS: CARVEDILOL 6.25 MG TAB PO SCH (21:05)
[2018-01-04] MEDS: FAMOTIDINE 20 MG TAB PO SCH (21:05)
[2018-01-04] MEDS: DOCUSATE SODIUM 50 MG/SENNA 8.6 MG TAB PO SCH (21:06)
[2018-01-04] MEDS: FUROSEMIDE 40 MG TAB PO SCH (21:06)
[2018-01-04] MEDS: SODIUM CHLORIDE 0.9% FLUSH 10 ML FLUSH IV FLUSH SCH (21:06)
[2018-01-04] MEDS: oxyCODONE/ACETAMINOPHEN 10 MG/325 MG TAB PO PRN (21:07)
[2018-01-04] MEDS: HEPARIN SODIUM - SQ 10,000 UNITS/ML VIAL SQ SCH (21:10)
[2018-01-04 21:31] LABS: TROPONIN I 0.04 NG/ML (0.02-0.05)
[2018-01-04 23:52] VITALS: BP 117/59; PULSE 73; RESP 17; TEMP 98.2; O2SAT 98
[2018-01-05 03:35] LABS: AUTOMATED NEUTROPHIL # 3.1 TH/MM3 (1.8-7.7); BASOPHIL # 0.1 TH/MM3 (0-0.2); BASOPHIL % 1.2 % (0.0-2.0); EOSINOPHIL # 0.1 TH/MM3 (0-0.4); EOSINOPHIL % 1.9 % (0.0-4.0); HEMATOCRIT 38.1 % (39.0-51.0); LYMPH % 27.6 % (9.0-44.0); LYMPHOCYTE # 1.5 TH/MM3 (1.0-4.8); MEAN CELL VOLUME 89.8 FL (80.0-100.0); MEAN CORPUSCULAR HEMOGLOBIN 30.5 PG (27.0-34.0); MEAN PLATELET VOLUME 8.9 FL (7.0-11.0); MONO % 12.1 % (0.0-8.0); MONOCYTE # 0.7 TH/MM3 (0-0.9); NEUT % 57.2 % (16.0-70.0); PLATELET COUNT 160 TH/MM3 (150-450); RED BLOOD COUNT 4.25 MIL/MM3 (4.50-5.90); RED CELL DISTRIBUTION WIDTH 14.1 % (11.6-17.2); WHITE BLOOD COUNT 5.4 TH/MM3 (4.0-11.0)
[2018-01-05 03:50] LABS: ALBUMIN 3.4 GM/DL (3.4-5.0); AST (GOT) 25 U/L (15-37); BICARBONATE 27.4 MEQ/L (21.0-32.0); BLOOD UREA NITROGEN 11 MG/DL (7-18); CALCIUM 8.1 MG/DL (8.5-10.1); CHLORIDE 102 MEQ/L (98-107); CHOLESTEROL 176 MG/DL (120-200); CREATININE 0.95 MG/DL (0.60-1.30); GLOMERULAR FILTRATION RATE 77 ML/MIN (>89); GLUCOSE,RANDOM 104 MG/DL (74-106); MAGNESIUM 1.8 MG/DL (1.5-2.5); SODIUM (NA) 141 MEQ/L (136-145); TRIGLYCERIDES 69 MG/DL (42-150)
[2018-01-05 03:53] LABS: TROPONIN I 0.05 NG/ML (0.02-0.05)
[2018-01-05 03:59] LABS: ALKALINE PHOSPHATASE 71 U/L (45-117); ALT (GPT) 31 U/L (12-78); CHOLESTEROL/ HDL RATIO 3.43 RATIO; FREE T4 0.94 NG/DL (0.76-1.46); HDL CHOLESTEROL 51.3 MG/DL (40.0-60.0); LDL CHOLESTEROL 111 MG/DL (0-99); PHOSPHORUS 2.9 MG/DL (2.5-4.9); TOTAL PROTEIN 7.4 GM/DL (6.4-8.2)
[2018-01-05 04:37] VITALS: BP 132/62; PULSE 77; RESP 17; TEMP 97.9; O2SAT 95
[2018-01-05] MEDS: HEPARIN SODIUM - SQ 10,000 UNITS/ML VIAL SQ SCH (05:40)
[2018-01-05] MEDS ORDERED: LEVOTHYROXINE SODIUM 25 MCG TAB PO SCH (06:00)
[2018-01-05 07:22] VITALS: BP 123/85; PULSE 80; RESP 18; TEMP 97.7; O2SAT 97
--- NOTE | 2018-01-05 08:20 | MB ---
cc: Davon Lozoya MD DATE: 01/05/2018 INDICATION: Chest pain. HISTORY OF PRESENT ILLNESS: This 77-year-old gentleman has a history of hypertension, hyperlipidemia and atrial fibrillation. He follows with the [facility]. He is on anticoagulation therapy. Denies any prior history of angina, heart catheterization, percutaneous intervention. The patient had some rather atypical type symptoms. He is not a great historian. He says that he has chest pain on and off pretty much most of the time. His symptoms, this particular event, were not exertional. He went over to the [facility], had an appointment, reports having 2-3 shots of hard liquor prior to his appointment. The [facility] recommended to come over here as initial troponin was 0.04. Electrocardiogram is unremarkable. He is currently chest pain free. PAST MEDICAL HISTORY: Hypertension, hyperlipidemia, congestive heart failure, atrial fibrillation. REPORTED MEDICATIONS: 1. Aspirin. 2. Omeprazole. 3. Levothyroxine. 4. Isosorbide. 5. Neurontin. 6. Lasix. 7. Coreg. 8. Lipitor. 9. Norvasc. ALLERGIES: ALLOPURINOL AND NAPROXEN. FAMILY HISTORY: Denies any family history of early coronary disease or sudden cardiac . SOCIAL HISTORY: Does report occasional alcohol use. Denies any tobacco or drug use. REVIEW OF SYSTEMS: A 12-point review of system was performed and is negative unless otherwise as noted in the history of present illness. PHYSICAL EXAMINATION: VITAL SIGNS: Temperature is 97, pulse 80, blood pressure 123/85 mmHg. GENERAL: Alert and oriented x 3 in no acute distress. HEENT: Shows pupils reactive to light and accommodation. Extraocular movements are intact. NECK: No elevation of jugular venous distention. No thyromegaly or lymphadenopathy. No carotid bruits. LUNGS: Clear to auscultation bilaterally. CARDIOVASCULAR: Regular rate and rhythm without murmurs, rubs or gallops. ABDOMEN: Nontender, nondistended. Good bowel sounds. No hepatosplenomegaly. EXTREMITIES: He show cyanosis, clubbing or edema. Good peripheral pulses. NEUROLOGIC: Cranial nerves intact. Motor and sensory grossly intact. LABORATORY DATA: WBC 5.4, hemoglobin is 13, platelet count is 160. INR is 2.3. Sodium 141, potassium 4.1, BUN is 11, creatinine 0.95. Troponin 0.04, 0.04, 0.5. Electrocardiogram shows a normal sinus rhythm, premature atrial complex, premature ventricular complex. ASSESSMENT: 1. Atypical chest pain. 2. Borderline troponin. 3. Atrial fibrillation and congestive heart failure. 4. Hypertension. 5. Hyperlipidemia. PLAN: Patient's symptoms are very atypical. He states that these are unchanged for some time. Electrocardiogram is unremarkable. Troponin, although mildly elevated, may just be his baseline if he has underlying cardiomyopathy. The patient was offered stress test and denied. The patient's INR is 2.3 and there is no indication for invasive strategy. He is on long-acting nitrates. At this point, we will proceed with a conservative approach. He can followup with the [facility]. We will sign off. Call with any questions. Davon Lozoya MD GETACHEW/DL , 07:47 AM , 08:19 AM
[2018-01-05] MEDS: CARVEDILOL 6.25 MG TAB PO SCH (08:48)
[2018-01-05] MEDS: SODIUM CHLORIDE 0.9% FLUSH 10 ML FLUSH IV FLUSH SCH (08:58)
[2018-01-05] MEDS: FAMOTIDINE 20 MG TAB PO SCH (08:59)
[2018-01-05] MEDS: THIAMINE HCL 100 MG TAB PO SCH (08:59)
[2018-01-05] MEDS: MULTIVITAMINS/MINERALS THERAPEUTIC TAB PO SCH (08:59)
[2018-01-05] MEDS: FOLIC ACID 1 MG TAB PO SCH (08:59)
[2018-01-05] MEDS: FUROSEMIDE 40 MG TAB PO SCH (08:59)
[2018-01-05] MEDS: ISOSORBIDE MONONITRATE 30 MG CR TAB (IMDUR) PO SCH (08:59)
[2018-01-05] MEDS: GABAPENTIN 400 MG CAP PO SCH (08:59)
[2018-01-05] MEDS: DOCUSATE SODIUM 50 MG/SENNA 8.6 MG TAB PO SCH (08:59)
[2018-01-05] MEDS ORDERED: ASPIRIN 325 MG TAB PO SCH (09:00)
[2018-01-05] MEDS ORDERED: TAMSULOSIN HCL 0.4 MG CAP PO SCH (09:00)
[2018-01-05] MEDS ORDERED: PANTOPRAZOLE SOD 20 MG DELAYED RELEASE TAB PO SCH (09:00)
[2018-01-05] MEDS: oxyCODONE/ACETAMINOPHEN 10 MG/325 MG TAB PO PRN (09:00)
[2018-01-05] MEDS ORDERED: amLODIPine BESYLATE 5 MG TAB PO SCH (09:00)
--- NOTE | 2018-01-05 09:01 | EKG ---
Date Performed: 01/05/2018 Time Performed: 04:33:36 PTAGE: 77 years EKG: ATRIAL FIBRILLATION PVC ABNORMAL RHYTHM ECG PREVIOUS TRACING : 01/04/2018 23.46 DOCTOR: Davon Lozoya Interpretating Date/Time 01/05/2018 09:00:30
--- NOTE | 2018-01-05 09:05 | EKG ---
Date Performed: 01/04/2018 Time Performed: 23:46:12 PTAGE: 77 years EKG: ATRIAL FIBRILLATION WITH ABERRANT CONDUCTION OR VENTRICULAR PREMATURE COMPLEXES LOW QRS VOL TAGE IN PRECORDIAL LEADS ABNORMAL RHYTHM ECG PREVIOUS TRACING : 01/04/2018 15.39 DOCTOR: Davon Lozoya Interpretating Date/Time 01/05/2018 09:03:49
[2018-01-05 10:03] LABS: MAGNESIUM 1.8 MG/DL (1.5-2.5); PHOSPHORUS 2.7 MG/DL (2.5-4.9)
[2018-01-05 10:06] LABS: TROPONIN I 0.05 NG/ML (0.02-0.05)
[2018-01-05 10:24] VITALS: RESP 18
--- NOTE | 2018-01-05 11:24 | HHI.PR ---
Subjective Remarks Patient walking in room. Appears comfortable. Denies any chest pain shortness of breath. Says he feels like going home. He says he drank about 4 beers yesterday in a bar prior to his doctor's appointment because he thought it would take the edge off. He reports history of alcohol use, however quit 10 years ago. Does not keep alcohol at home. He says he will no longer drink. He denies any history of alcohol withdrawal. Objective Vital Signs Date Time Temp Pulse Resp B/P (MAP) Pulse Ox O2 Delivery O2 Flow Rate FiO2 01/05/18 10:24 18 01/05/18 07:22 97.7 80 18 123/85 (98) 97 01/05/18 04:37 97.9 77 17 132/62 (85) 95 01/04/18 23:52 98.2 73 17 117/59 (78) 98 01/04/18 20:16 98.0 92 19 159/68 (98) 96 01/04/18 13:44 96 Room Air 01/04/18 13:07 98.3 80 20 146/76 (99) 96 Room Air 01/04/18 12:55 98.3 80 20 146/76 (99) 96 I/O 01/04/18 01/04/18 01/04/18 01/05/18 01/05/18 01/05/18 07:00 15:00 23:00 07:00 15:00 23:00 Output Total 400 ml Balance -400 ml Output Urine Total 400 ml Result Diagram: 01/05/184 01/05/18313 Objective Remarks GENERAL: Patient walking in room. Appears comfortable. Alert and oriented 3. SKIN: Warm and dry. HEAD: Normocephalic. EYES: No scleral icterus. No injection or drainage. NECK: Supple, trachea midline. No JVD. CARDIOVASCULAR: Regular rate and rhythm without murmurs, gallops, or rubs. RESPIRATORY: Breath sounds equal bilaterally. No accessory muscle use. GASTROINTESTINAL: Abdomen soft, non-tender, nondistended. MUSCULOSKELETAL: No cyanosis, or edema. BACK: Nontender without obvious deformity. No CVA tenderness. A/P Assessment and Plan //Chest pain EKG significant for atrial fibrillation, pulse 74, without ST segment elevations or depressions Initial troponin 0.04 ACS rule out pending; serial troponins/EKGs Aspirin Morphine = Cardiology signed off. Appreciate assistance. Follow-up with primary care as outpatient. //Alcohol intoxication Patient placed under Cervantes act Psychiatry consulted, appreciate recommendations Thiamine/folate/multivitamins = Patient says he has a history of a alcohol use in the past, however quit 10 years ago. He says this episode of drinking yesterday was a one-time thing. He denies any withdrawal. Appreciate case management assistance. Patient says he will avoid all alcohol. //Atrial fibrillation/CHF Continue home medications The patient reports he had adverse reactions to anticoagulants therefore he is only anticoagulated on aspirin // Hypertension/hyperlipidemia/CAD/hypothyroidism Continue home medication FEN N.p.o. Electrolytes: Monitor and replete as needed Heparin Discharge Planning Discharge home in good condition. Continue heart healthy diet. Activity ad isabella. Please see discharge medication reconciliation for medication list. Follow-up with primary care as outpatient. Bob Bowman MD Jan 05, 2018 11:24
--- NOTE | 2018-01-05 12:04 | PD.PSY.CON ---
Provisional Diagnosis Admission Date Jan 04, 2018 at 17:45 Mccarley I. Alcohol-induced mood disorder, alcohol use disorder, history of anxiety Mccarley II. Deferred Mccarley III. Hypertension, arthritis, BPH, A. fib Mccarley IV. Poor insight of alcohol use disorder Mccarley V. 57 History of Present Illness Service Psychiatry Consult Requested By ER Reason for Consult Patient is under Cervantes act Primary Care Physician [facility] HPI The patient is a very pleasant 77-year-old man, domiciled in [facility], , , with psychiatric history of anxiety, no previous psychiatric hospitalizations, no previous suicide attempts, he reports occasional use of alcohol, denies history of detox/rehabs, withdrawal symptoms with a past medical history significant for hypertension, hyperlipidemia, BPH, arthritis, CHF, A. fib (anticoagulated on aspirin) and CAD presents to the emergency department under Cervantes act for strange behavior at the [facility] in the context of alcohol intoxication. Initial BAL was 248. Is now under observation due to A. fib. EMR reviewed. Case discussed with primary attending and nursing charge. On psychiatric evaluation the patient is calm, cooperative, pleasant. The patient reports that yesterday he was a little bit excited, he drank some alcohol "because I wanted to relax myself before going to the doctor" and [facility] "I was laughing a lot, that is true, I cannot understand how is that a treat to self or other". At the moment of this evaluation the patient reports good mood, he denies anhedonia, denies hopelessness, denies helplessness, denies anxiety, he denies symptoms of withdrawal, denies suicidal enemas ideation, he denies visual and auditory hallucinations. The patient is fully oriented 3, no attention deficit, no fluctuation of consciousness. He does report occasional use of alcohol, denies illegal drugs. Review of Systems Constitutional: DENIES: Diaphoretic episodes, Fatigue, Fever, Weight gain, Weight loss, Chills, Dizziness, Change in appetite, Night Sweats Endocrine: DENIES: Heat/cold intolerance, Polydipsia, Polyuria, Polyphagia Eyes: DENIES: Blurred vision, Diplopia, Eye inflammation, Eye pain, Vision loss , Photosensitivity, Double Vision Ears, nose, mouth, throat: DENIES: Tinnitus, Hearing loss, Vertigo, Nasal discharge, Oral lesions, Throat pain, Hoarseness, Ear Pain, Running Nose, Epistaxis, Sinus Pain, Toothache, Odynophagia Respiratory: DENIES: Apneas, Cough, Snoring, Wheezing, Hemoptysis, Sputum production, Shortness of breath Cardiovascular: DENIES: Chest pain, Palpitations, Syncope, Dyspnea on Exertion , PND, Lower Extremity Edema, Orthopnea, Claudication Gastrointestinal: DENIES: Abdominal pain, Black stools, Bloody stools, Constipation, Diarrhea, Nausea, Vomiting, Difficulty Swallowing, Anorexia Musculoskeletal: DENIES: Joint pain, Muscle aches, Stiffness, Joint Swelling, Back pain, Neck pain Integumentary: DENIES: Abnormal pigmentation, Nail changes, Pruritus, Rash Hematologic/lymphatic: DENIES: Bruising, Lymphadenopathy Immunologic/allergic: DENIES: Eczema, Urticaria Neurologic: DENIES: Abnormal gait, Headache, Localized weakness, Paresthesias, Seizures, Speech Problems, Tremor, Poor Balance Psychiatric: DENIES: Anxiety, Confusion, Mood changes, Depression, Hallucinations, Agitation, Suicidal Ideation, Homicidal Ideation, Delusions Past Family Social History Coded Allergies: allopurinol (Unverified Allergy, Severe, 03/09/17) naproxen (Unverified Allergy, Severe, Itching, 03/09/17) Reported Medications Aspirin (Aspirin) 325 Mg Tab, 325 MG PO DAILY, #30 TAB 0 Refills 01/04/18 Omeprazole (Omeprazole) 20 Mg Tab, 20 MG PO DAILY, #30 TAB 0 Refills 01/04/18 Nitroglycerin SL (Nitroglycerin SL) 0.4 Mg Subl, 0.4 MG SL DIRECTED Y for CHEST PAIN, #100 TAB.SL 0 Refills ONE TABLET UNDER THE TONGUE NEEDED FOR CHEST PAIN, MAY REPEAT EVERY FIVE MINUTES FOR A TOTAL OF 3 DOSES OR CALL 911 IF NO RELIEF 01/04/18 Lidocaine Topical (Lidocaine Topical) 4 % Cream, 1 APPLIC TOPICAL QID for Anesthetic Relief Apply to affected area on skin 01/04/18 Levothyroxine (Levothyroxine) 25 Mcg Tab, 25 MCG PO DAILY for Thyroid, #30 TAB 0 Refills 01/04/18 Isosorbide Mononitrate ER (Isosorbide Mononitrate ER) 30 Mg Lenore, 30 MG PO DAILY for Prevent Chest Pain, #30 TAB 0 Refills 01/04/18 Gabapentin (Neurontin) 400 Mg Cap, 400 MG PO TID for Pain Management, #30 CAP 0 Refills 01/04/18 Furosemide (Lasix) 40 Mg Tab, 40 MG PO BID for Diuretic, #60 TAB 0 Refills 01/04/18 Carvedilol (Coreg) 6.25 Mg Tab, 3.125 MG PO BID for Heart, #60 TAB 0 Refills 01/04/18 Atorvastatin (Lipitor) 80 Mg Tab, 80 MG PO HS for Cholesterol Management, #30 TAB 0 Refills 01/04/18 Amlodipine (Norvasc) 2.5 Mg Tab, 2.5 MG PO DAILY for Blood Pressure Management, #30 TAB 0 Refills 01/04/18 Alfuzosin HCl (Alfuzosin HCl ER) 10 Mg Tab, 10 MG PO DAILY for Prostate 01/04/18 Discontinued Scripts Ondansetron Odt (Zofran Odt) 4 Mg Tab, 4 MG SL Q6HR Y for Nausea/Vomiting, #30 TAB 0 Refills Prov:Damaris Leyva MD 02/12/17 Current Medications Medications (Trade) Dose Ordered Sig/Valery Route Start Time Stop Time Status Last Admin (Catapres) 0.1 mg Q4H PRN PO 01/04/18 17:45 (Tylenol) 650 mg Q4H PRN PO 01/04/18 18:00 (Zofran Odt) 4 mg Q6H PRN PO 01/04/18 18:00 01/05/18 00:35 (Reglan Inj) 5 mg Q6H PRN IV PUSH 01/04/18 18:00 (Tylenol) 650 mg Q6H PRN PO 01/04/18 18:00 (Percocet 5-325 Mg) 1 tab Q6H PRN PO 01/04/18 18:00 (Percocet 10-325 Mg) 1 tab Q6H PRN PO 01/04/18 18:00 01/05/18 09:00 (Morphine Inj) 2 mg Q3H PRN IV PUSH 01/04/18 18:00 (Morphine Inj) 4 mg Q3H PRN IV PUSH 01/04/18 18:00 (Morphine Inj) 4 mg Q3H PRN IV PUSH 01/04/18 18:00 (Narcan Inj) 0.4 mg UNSCH PRN IV PUSH 01/04/18 18:00 (Shanda-Colace) 1 tab BID PO 01/04/18 21:00 01/05/18 08:59 (Milk Of Magnesia Liq) 30 ml Q12H PRN PO 01/04/18 18:00 (Senokot) 17.2 mg Q12H PRN PO 01/04/18 18:00 (Dulcolax Supp) 10 mg DAILY PRN RECTAL 01/04/18 18:00 (Lactulose Liq) 30 ml DAILY PRN PO 01/04/18 18:00 (Nitrostat Sl) 0.4 mg Q5M PRN SL 01/04/18 18:00 (Pepcid) 20 mg BID PO 01/04/18 21:00 01/05/18 08:59 (Norvasc) 2.5 mg DAILY PO 01/05/18 09:00 (Aspirin) 325 mg DAILY PO 01/05/18 09:00 01/05/18 08:58 (Lipitor) 80 mg HS PO 01/04/18 21:00 (Coreg) 3.125 mg BID PO 01/04/18 21:00 01/04/18 21:05 (Lasix) 40 mg BID PO 01/04/18 21:00 01/05/18 08:59 (Neurontin) 400 mg TID PO 01/04/18 18:00 01/05/18 08:59 (Imdur) 30 mg DAILY PO 01/04/18 18:00 01/05/18 08:59 (Synthroid) 25 mcg DAILY@0600 PO 01/05/18 06:00 01/05/18 05:40 (Flomax) 0.4 mg DAILY PO 01/05/18 09:00 01/05/18 08:59 (Protonix) 20 mg DAILY PO 01/05/18 09:00 01/05/18 08:59 (NS Flush) 2 ml UNSCH PRN IV FLUSH 01/04/18 18:00 (NS Flush) 2 ml BID IV FLUSH 01/04/18 21:00 01/05/18 08:58 (Folate) 1 mg DAILY PO 01/04/18 18:00 18 17:59 01/05/18 08:59 (Vitamin B1) 100 mg DAILY PO 01/04/18 18:00 01/05/18 08:59 (Theragran M Tab) 1 tab DAILY PO 01/04/18 18:00 01/09/18 17:59 01/05/18 08:59 (Romazicon Inj) 0.2 mg Q1M PRN IV PUSH 01/04/18 18:00 (Ativan) 1 mg Q4H PRN PO 01/04/18 18:00 01/05/18 00:43 (Ativan Inj) 1 mg Q4H PRN IV PUSH 01/04/18 18:00 (Ativan) 2 mg Q2H PRN PO 01/04/18 18:00 (Ativan Inj) 2 mg Q2H PRN IV PUSH 01/04/18 18:00 (Ativan Inj) 2 mg Q1H PRN IV PUSH 01/04/18 18:00 (Ativan Inj) 2 mg Q15M PRN IV PUSH 01/04/18 18:00 (Haldol Inj) 2 mg Q15M PRN IM 01/04/18 18:00 (Heparin Inj) 5,000 units Q8HR SQ 01/04/18 22:00 Family Psych History No family psychiatric history Social History Patient was born and raised in [facility], he lives in [facility] alone, he has a daughter who lives in [place] and is his main support, unemployed, retired from the [employer], , his highest level of education is high school Patient's Strengths (min. 2) Outpatient care with the [facility] Physical Exam No tremors, no EPS, no psychomotor retardation or agitation, no stiffness Vital Signs Vital Signs Date Time Temp Pulse Resp B/P (MAP) Pulse Ox O2 Delivery O2 Flow Rate FiO2 01/05/18 10:24 18 01/05/18 07:22 97.7 80 123/85 (98) 97 01/04/18 13:44 Room Air I/O 01/05/18 01/05/18 01/06/18 08:00 16:00 00:00 Output Total 400 ml Balance -400 ml Lab Results Test 01/04/18 13:42 01/04/18 15:57 01/04/18 16:30 01/04/18 19:57 White Blood Count 6.3 TH/MM3 Red Blood Count 4.67 MIL/MM3 Hemoglobin 14.4 GM/DL Hematocrit 41.7 % Mean Corpuscular Volume 89.3 FL Mean Corpuscular Hemoglobin 30.9 PG Mean Corpuscular Hemoglobin Concent 34.6 % Red Cell Distribution Width 13.9 % Platelet Count 185 TH/MM3 Mean Platelet Volume 8.8 FL Neutrophils (%) (Auto) 53.8 % Lymphocytes (%) (Auto) 37.0 % Monocytes (%) (Auto) 6.0 % Eosinophils (%) (Auto) 2.2 % Basophils (%) (Auto) 1.0 % Neutrophils # (Auto) 3.4 TH/MM3 Lymphocytes # (Auto) 2.3 TH/MM3 Monocytes # (Auto) 0.4 TH/MM3 Eosinophils # (Auto) 0.1 TH/MM3 Basophils # (Auto) 0.1 TH/MM3 CBC Comment DIFF FINAL Differential Comment Blood Urea Nitrogen 12 MG/DL Creatinine 1.11 MG/DL Random Glucose 84 MG/DL Total Protein 8.3 GM/DL Albumin 4.0 GM/DL Calcium Level 8.7 MG/DL Alkaline Phosphatase 78 U/L Aspartate Amino Transf (AST/SGOT) 33 U/L Alanine Aminotransferase (ALT/SGPT) 34 U/L Total Bilirubin 0.7 MG/DL Sodium Level 141 MEQ/L Potassium Level 3.9 MEQ/L Chloride Level 105 MEQ/L Carbon Dioxide Level 21.8 MEQ/L Anion Gap 14 MEQ/L Estimat Glomerular Filtration Rate 65 ML/MIN 25-Hydroxy Vitamin D Total 26.3 ng/ML Free Thyroxine 1.19 NG/DL Thyroid Stimulating Hormone 3rd Gen 0.902 uIU/ML Salicylates Level LESS THAN 1.7 MG/DL Acetaminophen Level LESS THAN 2.0 MCG/ML Ethyl Alcohol Level 248 MG/DL Prothrombin Time 22.8 SEC Prothromb Time International Ratio 2.3 RATIO Activated Partial Thromboplast Time 51.5 SEC Magnesium Level 2.0 MG/DL 2.0 MG/DL Total Creatine Kinase 204 U/L 201 U/L Creatine Kinase MB 2.1 NG/ML Troponin I 0.04 NG/ML 0.04 NG/ML Lipase 93 U/L Urine Color YELLOW Urine Turbidity CLEAR Urine pH 5.5 Urine Specific Sidney 1.020 Urine Protein TRACE mg/dL Urine Glucose (UA) NEG mg/dL Urine Ketones 10 mg/dL Urine Occult Blood NEG Urine Nitrite NEG Urine Bilirubin NEG Urine Urobilinogen LESS THAN 2.0 MG/DL Urine Leukocyte Esterase NEG Urine RBC LESS THAN 1 /hpf Urine WBC LESS THAN 1 /hpf Urine Squamous Epithelial Cells <1 /hpf Urine Hyaline Casts 2 /lpf Urine Mucus FEW /lpf Microscopic Urinalysis Comment CULT NOT INDICATED Urine Opiates Screen NEG Urine Barbiturates Screen NEG Urine Amphetamines Screen NEG Urine Benzodiazepines Screen POS Urine Cocaine Screen NEG Urine Cannabinoids Screen NEG Test 01/05/18 03:14 01/05/18 09:10 White Blood Count 5.4 TH/MM3 Red Blood Count 4.25 MIL/MM3 Hemoglobin 13.0 GM/DL Hematocrit 38.1 % Mean Corpuscular Volume 89.8 FL Mean Corpuscular Hemoglobin 30.5 PG Mean Corpuscular Hemoglobin Concent 34.0 % Red Cell Distribution Width 14.1 % Platelet Count 160 TH/MM3 Mean Platelet Volume 8.9 FL Neutrophils (%) (Auto) 57.2 % Lymphocytes (%) (Auto) 27.6 % Monocytes (%) (Auto) 12.1 % Eosinophils (%) (Auto) 1.9 % Basophils (%) (Auto) 1.2 % Neutrophils # (Auto) 3.1 TH/MM3 Lymphocytes # (Auto) 1.5 TH/MM3 Monocytes # (Auto) 0.7 TH/MM3 Eosinophils # (Auto) 0.1 TH/MM3 Basophils # (Auto) 0.1 TH/MM3 CBC Comment DIFF FINAL Differential Comment Blood Urea Nitrogen 11 MG/DL Creatinine 0.95 MG/DL Random Glucose 104 MG/DL Total Protein 7.4 GM/DL Albumin 3.4 GM/DL Calcium Level 8.1 MG/DL Phosphorus Level 2.9 MG/DL 2.7 MG/DL Magnesium Level 1.8 MG/DL 1.8 MG/DL Alkaline Phosphatase 71 U/L Aspartate Amino Transf (AST/SGOT) 25 U/L Alanine Aminotransferase (ALT/SGPT) 31 U/L Total Bilirubin 1.0 MG/DL Sodium Level 141 MEQ/L Potassium Level 4.1 MEQ/L Chloride Level 102 MEQ/L Carbon Dioxide Level 27.4 MEQ/L Anion Gap 12 MEQ/L Estimat Glomerular Filtration Rate 77 ML/MIN Total Creatine Kinase 214 U/L 198 U/L Troponin I 0.05 NG/ML 0.05 NG/ML Triglycerides Level 69 MG/DL Cholesterol Level 176 MG/DL LDL Cholesterol 111 MG/DL HDL Cholesterol 51.3 MG/DL Cholesterol/HDL Ratio 3.43 RATIO Free Thyroxine 0.94 NG/DL Thyroid Stimulating Hormone 3rd Gen 2.020 uIU/ML Mental Status Examination Appearance: Appropriate Consciousness: Alert Orientation: x4 Motor Activity: Normal gait Speech: Unremarkable Language: Adequate Fund of Knowledge: Adequate Attention and Concentration: Adequate Memory: Unremarkable Mood: Appropriate Affect: Appropriate Thought Process & Associations: Intact Thought Content: Appropriate Hallucination Type: None Delusion Type: None Suicidal Ideation: No Suicidal Plan: No Suicidal Intention: No Homicidal Ideation: No Homicidal Plan: No Homicidal Intention: No Insight: Adequate Judgment: Adequate Assessment & Plan Problem List: (1) Alcohol abuse with alcohol-induced mood disorder ICD Codes: F10.14 - Alcohol abuse with alcohol-induced mood disorder Assessment & Plan: On the psychiatric evaluation the patient does not present any acute, concerning or significant neuropsychiatric symptoms that require an immediate psychiatric intervention. He denies symptoms of depression, anxiety, shoaib and psychosis. He denies suicidal enemas ideation, he denies visual and auditory hallucinations. Patient seems to be in precontemplation state of his alcohol use, minimizes and denies his alcohol use. No psychiatric admission indicated. Brief supportive psychotherapy provided. place in [facility] protocol. Cervantes act will be lifted. Assessment & Plan Estimated LOS: Elias Francisco MD Jan 05, 2018 12:04
[2018-01-05 16:30] LABS: HEMOGLOBIN A1C 5.6 % (4.3-6.0)
== END 2018-01-05 13:06 | disposition home or self-care (01) ==
LOC: NEPD 12:44 → NEDA 17:45 → NEPHCDU 18:45
PROVIDERS: ADMIT Internal Medicine; ATTEND Internal Medicine
DX: R07.9 Chest pain, unspecified (principal); I48.91 Unspecified atrial fibrillation; F10.129 Alcohol abuse with intoxication, unspecified; I25.10 Atherosclerotic heart disease of native coronary artery without angina pectoris; I11.0 Hypertensive heart disease with heart failure; I50.9 Heart failure, unspecified; E78.5 Hyperlipidemia, unspecified; R06.02 Shortness of breath; R00.2 Palpitations; Z79.01 Long term (current) use of anticoagulants; M19.90 Unspecified osteoarthritis, unspecified site; F41.9 Anxiety disorder, unspecified; E78.00 Pure hypercholesterolemia, unspecified; K74.60 Unspecified cirrhosis of liver; Y90.8 Blood alcohol level of 240 mg/100 ml or more; R07.89 Other chest pain; Z86.73 Personal history of transient ischemic attack (TIA), and cerebral infarction without residual deficits; K57.92 Diverticulitis of intestine, part unspecified, without perforation or abscess without bleeding; K21.9 Gastro-esophageal reflux disease without esophagitis; M10.9 Gout, unspecified; N40.0 Benign prostatic hyperplasia without lower urinary tract symptoms; I25.2 Old myocardial infarction; E07.9 Disorder of thyroid, unspecified; K86.1 Other chronic pancreatitis; R94.31 Abnormal electrocardiogram [ECG] [EKG]
CPT/HCPCS: 71045; 80053; 80061; 80307; 81001; 82306; 82550; 82552; 82948; 83036; 83690; 83735; 84100; 84439; 84443; 84484; 85025; 85610; 85730; 93005; 97161; 97166; 99285; G0378; G8987; G8988; G8989